=== PATIENT | female | born 1965 | race Caucasian/White ===

== ENCOUNTER 2025-02-06 12:51 | Emergency (ER) | payer MEDICARE, MEDICAID, SELFPAY ==
--- NOTE | 2025-02-06 13:03 | ED_ITS ---
HPI - General Adult General Chief complaint: General Medical Stated complaint: NO section 21 from MV, HTN crisis Time Seen by Provider: 02/06/25 13:02 Source: patient and EMS Mode of arrival: EMS Limitations: no limitations History of Present Illness ED Provider: Regine Rose PA-C HPI narrative: Patient is a 59 year old assigned female at with a history of von willebrand's disease, HTN, bipolar disorder, and hyponatremia presenting to the emergency department today from [facility] for an elevated blood pressure. Patient states that she has no complaints. Elicia Hamlin states that the patient's blood pressures were elevated and they gave her the already prescribed hypertension medications and it began to came down but she needs to be evaluated. Patient denies any dizziness, lightheadedness, abdominal pain, nausea, vomiting, fever, chills, blurry vision, double vision, loss of vision, chest pain, difficulty breathing, shortness of breath, back pain, night sweats, pain with urination, increased urinary frequency, increased urinary urgency, blood in her urine or stool, syncope or a near syncopal episode, recent trauma or falls, bowel incontinence, bladder incontinence, or any other complaints at this time. Patient is on a section 21 from [facility] - so if medically cleared, patient will return to that facility. Upon reviewing the patient's psychiatry assessment from [facility] the patient is acutely manic - tearing down the lyon of her home, attempting to give her car away to strangers, inviting homeless people into her home. Patient's son, Yimi, can be contacted at [phone]. Relieving factors: none Exacerbating factors: none Associated symptoms: denies other symptoms Treatments prior to arrival: other (prescribed anti-hypertensives) Related Data Allergies Allergy/AdvReac Type Severity Reaction Status Date / Time No Known Allergies Allergy Verified 02/06/25 13:10 Review of Systems 2 Constitutional: Constitutional: Reports no additional constitutional complaints, Denies chills, Denies fever(s) and Denies night sweats Eyes: Eyes: Reports no additional eye complaints, Denies blurry vision, Denies change in vision, Denies diplopia, Denies eye discharge, Denies loss of vision and Denies eye pain ENT: Denies dizziness Cardiovascular: Cardiovascular: Reports no additional cardiovascular complaints, Denies chest pain, Denies lightheadedness, Denies Loss of Consciousness and Denies dyspnea Respiratory: Respiratory: Reports no additional respiratory complaints and Denies dyspnea Gastrointestinal: Gastrointestinal: Reports no additional gastrointestinal complaints, Denies abdominal pain, Denies melena, Denies hematochezia, Denies change in bowel habits and Denies change in stool character Genitourinary: Genitourinary: Denies hematuria, Denies urinary frequency, Denies dysuria, Denies urinary incontinence, Denies urinary hesitancy and Denies urinary urgency Musculoskeletal: Musculoskeletal: Reports no additional musculoskeletal complaints, Denies numbness and Denies tingling Neurologic: Denies dizziness, Denies loss of vision, Denies numbness and Denies tingling Psychiatric: Psychiatric: Reports no additional psychiatric complaints Endocrine: Endocrine: Reports no additional endocrine complaints Hematologic/Lymphatic: Hematologic/Lymphatic: Reports no additional hematologic/lymphatic complaints Allergic/Immunologic: Allergic/Immunologic: Reports no additional allergic/immunologic complaints PMFSH Past Medical History Attestation statement: The following information was validated with the patient. Source: old records reviewed and nursing notes reviewed Social History Social History Alcohol intake: former Smoked in Last 30 Days: No Substance Use Type: Marijuana Advance Directives: No Advance Directives Information Provided: Yes Physical Exam ED Vital Signs: Vital Signs - 24 hr 02/06/25 13:04 Temperature 98.1 F Pulse Rate 80 Respiratory Rate 16 Blood Pressure 146/99 H Pulse Oximetry 97 Oxygen Delivery Method Room Air BMI result Body Mass Index 26.3 Const General: cooperative, no acute distress, alert and awake Nutritional Appearance: well nourished Orientation/consciousness: patient oriented x3 HENMT Head: Yes normal to inspection and Yes atraumatic Ears: hearing grossly normal bilaterally and external ears normal General nose exam: Normal external nose present, no nasal discharge noted and no epistaxis Face and sinus: Yes normal facial exam, No abrasion and No laceration Mouth: Normal oral and palatal mucosa present, no drooling and no muffled voice Eyes General: appearance normal, both eyes and all related structures Periorbital: periorbital findings normal Eyelids: Yes eyelids normal Conjunctivae: conjunctivae normal Pupils: Equal, round and reactive pupils present EOM: EOMs intact bilaterally Neck Neck: Yes normal visual inspection, Yes full ROM and Yes no lymphadenopathy Resp Effort & Inspection: normal respiratory effort and able to speak in complete sentences Neuro General: patient oriented x3, moves all extremities and CN's II-XI intact bilaterally Cranial nerves: Yes Equal, round and reactive pupils present Cognition (Neuro): normal cognition Extrem General: Yes normal to inspection, Yes full ROM and Yes capillary refill normal Psych Appearance: grossly normal Medical Decision Making Medical Decision Making [facility] Narrative: Patient is a 59 year old assigned female at with a history of von willebrand's disease, HTN, bipolar disorder, and hyponatremia presenting to the emergency department today from [facility] for an elevated blood pressure. Patient's physical exam was unremarkable. Patient's blood work was unremarkable. Patient's EKG was unremarkable. I explained my physical exam findings as well as all test results to the patient. I answered all questions asked by the patient. Patient was normotensive the entire time she was in the department. I stressed the importance of the patient taking her medication as directed (either prescribed or as the over the counter packaging recommends). I stressed the importance of the patient following up with her primary care provider. I stressed the importance of the patient returning to the emergency department immediately if she were to develop any dizziness, shortness of breath, difficulty breathing, chest pain, blurry vision, loss of vision, nausea, vomiting, abdominal pain, fever, chills, back pain, or any other complaints. Patient verbalized agreement and understanding with this treatment plan and transfer back to [facility]. Differential Diagnosis Differential Diagnoses: The differential diagnosis associated with the presentation includes HTN Medical examination Admission/Observation Consideration of admission/observation: Escalation of care including admission/observation considered Patient would have been admitted to the hospital had her work up had any findings where hospital admission was appropriate and her clinical presentation warranted hospital admission. Lab Data [facility] Lab Attestation statement: I reviewed the patient's lab results. My interpretation of these results are in the [facility] Rationale portion of this note. 02/06/25 13:54 02/06/25 13:54 Labs: Lab Results 02/06/25 02/06/25 Range/Units 13:54 13:55 WBC 6.0 (4.8-10.8) X10*3/uL RBC 4.22 (4.20-5.50) X10*6/uL Hgb 12.1 (12.0-16.0) g/dl Hct 35.5 L (37.0-47.0) % MCV 84.1 (80.0-98.0) fL MCH 28.7 (27.0-33.0) pg MCHC 34.1 (31.0-35.0) g/dl RDW 13.2 (11.0-16.0) % Plt Count 267 (160-400) X10*3/uL MPV 9.5 (9.4-12.3) fL Immature Gran % (Auto) 0.3 (0.0-0.4) % Neut % (Auto) 66.2 (45-73) % Lymph % (Auto) 27.4 (20-40) % [place] % (Auto) 5.5 (2-11) % Eos % (Auto) 0.3 (0-4) % Baso % (Auto) 0.3 (0-2) % Lymph # (Auto) 1.6 (1.2-4.9) X10*3/uL [place] # (Auto) 0.3 (0.1-1.2) X10*3/uL Eos # (Auto) 0.0 (0.0-0.4) X10*3/uL Baso # (Auto) 0.0 (0.0-0.2) X10*3/uL Abs Immat Gran (auto) 0.02 (0.00-0.03) X10*3/uL Absolute Neuts (auto) 4.0 (2.0-8.3) x10*3/uL Absolute Nucleated RBC 0.000 (0.0-0.012) X10*3/uL Nucleated RBC % (auto) 0.0 (0.0-0.2) /100WBC Sodium 134 L (135-145) mmol/L Potassium 3.6 (3.3-5.1) mmol/L Chloride 104 (96-108) mmol/L Carbon Dioxide 23 (22-29) mmol/L Anion Gap 11 L (12-20) BUN 8 L (9-16) mg/dL Creatinine 0.64 (0.5-1.4) mg/dL Estim Creat Clear Calc 90.4 Estimated GFR > 60 Random Glucose 122 H (60-115) mg/dL Calcium 9.3 (8.4-10.2) mg/dL Total Bilirubin 0.3 (0.0-1.0) mg/dL AST 25 (5-31) U/L ALT 29 (0-31) U/L Alkaline Phosphatase 64 (39-117) U/L Total Protein 6.7 (6.5-8.0) g/dL Albumin 4.2 (3.5-5.0) g/dL Urine Color Yellow Urine Appearance Clear Urine pH 6.0 (5.0-9.0) Ur Specific [place] 1.010 (1.005-1.025) Urine Protein Negative (Neg-Trace) mg/dL Urine Glucose (UA) Negative (Negative) mg/dL Urine Ketones Negative (Negative) mg/dL Urine Blood Moderate (2+) H (Negative) Urine Nitrite Negative (Negative) Ur Leukocyte Esterase Large (3+) H (Negative) Urine RBC 3-5 H (0-2) /HPF Urine WBC 11-20 (0-5) /HPF Ur Squamous Epith Cells 3-5 (0-2) /HPF Urine Bacteria Trace (None Seen) Hyaline Casts 0-2 (0-2) /LPF Salicylates < 5.0 L (15-30) mg/dL Urine Opiates Screen Not Detected (Not Detect) Ur Buprenorphine Scrn Not Detected (Not Detect) ng/mL Ur Oxycodone Screen Not Detected (Not Detect) ng/mL Urine Methadone Screen Not Detected (Not Detect) ng/mL Urine Fentanyl Screen Not Detected (Not Detect) Acetaminophen 5 (<30) mcg/mL Ur Barbiturates Screen Not Detected (Not Detect) Ur Phencyclidine Scrn Not Detected (Not Detect) Ur Amphetamines Screen Not Detected (Not Detect) U Benzodiazepines Scrn Not Detected (Not Detect) Urine Cocaine Screen Not Detected (Not Detect) U Marijuana (THC) Screen POSITIVE H (Not Detect) Ethyl Alcohol < 10 mg/dL Independent Interpretation I performed an independent interpretation of an: EKG Interpretation: I independently interpreted this EKG and am in agreement with the below findings: Vent. Rate: 56 BPM Atrial Rate: 56 BPM P-R Int: 168 ms QRS Dur: 92 ms QT Int: 450 ms P-R-T Axes: 66 7 33 degrees QTcB Int: 434 ms Sinus bradycardia Minimal voltage criteria for LVH, may be normal variant ( Obed product ) Borderline ECG No previous ECGs available DD/ 1413 Independent Historian Clinical information obtained from an independent historian. History obtained from or confirmed by: EMS (EMS provided additional history and confirmed the history provided by the patient. ) External Record Review External record reviewed: Inpatient record and Outside ED record (Reviewed [facility] ED records from 02/05/2025) Chronic Conditions Patient?s care impacted by: Hypertension Critical Care Time Critical Care Time Critical Care Time: Yes Total Critical Care Time: 33 Attestation: I spent 33 minutes of Critical Care Time with this patient. This does not include time spent on separately reported billable procedures. Discharge Plan Discharge Clinical Impression: Hypertension, María Patient Disposition: [facility] Transfer Details: Back to [facility] Instructions: Hypertension (ED) Additional Instructions: Follow up with a primary care provider. Return to the emergency department immediately if your symptoms worsen or if you develop any numbness, tingling, dizziness, shortness of breath, difficulty breathing, chest pain, blurry vision, loss of vision, nausea, vomiting, abdominal pain, fever, chills, back pain, or any other complaints. L If you do not have a primary care provider - call any of the below numbers to establish and follow up with a primary care provider. [facility] ([place]) [phone] [place] [address], [address] [facility] ([facility] [place]) [phone] [place] [address], [address] [facility], [address] [facility] ([address] [place]) [phone] [place] [address], [address] [facility], [address] [facility] ([place]) [phone] [place] [address], [address] [facility], [address] [facility] [phone] [address] [facility], [address] Please see the information below about our Patient Portal. If you are not yet enrolled in the [facility] Patient Portal, you will receive an enrollment email invitation following your visit to any [facility] care setting. You may also self-enroll in the Patient Portal by visiting our website: [email or web address] The following information is required to access the Patient Portal: - Your [facility] Medical Record Number - Your personal home email address (must match what is in your electronic medical record, Registration staff can assist with this) - Name - Date of Capabilities of the Patient Portal: - Message some providers - View upcoming appointments - Access your health summary, medical history, and visit history - View current conditions and allergies - View procedure and lab results - View your medications, including guidelines, side effects, and precautions - Complete pre-appointment questionnaires requested by your provider - Ready summary reports of your office visits and procedures To access the Patient Portal Mobile Humberto, follow these directions: - Search Instantisth in the Humberto Store or Jooix Store - Download the Humberto - Search for [facility] - Enter your login/password Print Language: French
[2025-02-06 13:04] VITALS: BP 117/81; BP 146/99; PULSE 80; RESP 16; TEMP 36.7; O2SAT 97; BMI 26.3
--- NOTE | 2025-02-06 13:05 | ECG_ITS ---
Test Reason : Medical clearence Blood Pressure : */* mmHG Vent. Rate : 56 BPM Atrial Rate : 56 BPM P-R Int : 168 ms QRS Dur : 92 ms QT Int : 450 ms P-R-T Axes : 66 7 33 degrees QTcB Int : 434 ms Sinus bradycardia Minimal voltage criteria for LVH, may be normal variant ( [place] product ) Borderline ECG No previous ECGs available Referred By: Regine Rose Electronically Signed By: Delta Kilpatrick
--- NOTE | 2025-02-06 13:24 | PC.NURSE ---
Patient is a 59 yo female who presents from [facility] with a ? hypertensive crisis via EMS. Normotensive for EMS. Patient denies any complaints. PMH: Htn, von Willebrand's disease and bipolar. Patient was sent to [facility] for exhibiting erratic/dangerous and aggressive behavior. Section 21 noted. Patient appears to be sl manic but redirectable. States that they discharged her to this facility. Clothing and belongings removed. Changed into psych safe clothing and placed on constant observation. Lungs clear bilat. Respirations even and non-labored. Abdomen flat, soft, non-tender with positive bowel sounds. Positive pedal pulses with no edema.
[2025-02-06 14:01] LABS: MANUAL DIFF FLAG NO
[2025-02-06 14:04] LABS: Hematocrit 35.5 % (37.0-47.0); Hemoglobin 12.1 g/dl (12.0-16.0); Imm Gran Abs Auto 0.02 X10*3/uL (0.00-0.03); Imm Gran Pct Auto 0.3 % (0.0-0.4); Lymphocytes Absolute Auto 1.6 X10*3/uL (1.2-4.9); Mean Corpuscular HGB Conc 34.1 g/dl (31.0-35.0); Mean Corpuscular Hemoglobin 28.7 pg (27.0-33.0); Mean Corpuscular Volume 84.1 fL (80.0-98.0); NRBC Abs Auto 0.000 X10*3/uL (0.0-0.012); NRBC Pct Auto 0.0 /100WBC (0.0-0.2); Platelet Count 267 X10*3/uL (160-400); Red Blood Count 4.22 X10*6/uL (4.20-5.50); White Blood Count 6.0 X10*3/uL (4.8-10.8)
[2025-02-06 14:10] LABS: Appearance Urine Clear; Glucose Urine UA Negative (Negative); PH 6.0 (5.0-9.0); Specific Gravity - Urine 1.010 (1.005-1.025); UMIC TRIGGER UA YES
[2025-02-06 14:15] LABS: Cannabinoid Screen Urine POSITIVE (Not Detect)
[2025-02-06 14:20] LABS: Acetaminophen LAB 5 mcg/mL (<30); Salicylate < 5.0 mg/dL (15-30)
--- OUTSIDE RECORDS SUMMARY | 2025-02-06 14:20 | XMS_ITS | Encounter Summary ---
Author Organization [facility] Address [address] [place] [address] Phone Care Team Providers Care Traffic Worker Name Role Phone Lui Thompson MD Primary Care Provider + Isabel Nichols MD Primary Care Provider [phone] Lamine Ponce MD Primary Care Provider [phone] Aníbal Thompson MD Unavailable Encounter Details Date Type Department Care Team (Late Contact Info) Description 08/20/2015 Telephone [facility] Pain Management [address] [facility] [facility] [address] [place] [id number] Rhiannon Garibay, RN [address] [place] [phone] [email or web address] Social History Tobacco Use Types Packs/Day Years Used Date Smoking Tobacco: Former Comments:Smoking History Pac ks/day: <=0.5 Alcohol Use Standard Drinks/Week Comments Yes 1 (1 standard drink = 0.6 oz pur e alcohol) Comments Unknown Sex and Gender Information Value Date Recorded Sex Assigned at Not on file Legal Sex Female 4:59 PM EST Gender Identity Not on file Sexual Orientation Not on file documented as of this encounter Plan of Treatment Upcoming Encounters Date Type Department Care Team (Late Contact Info) Description 02/08/2025 9:00 AM EDT [facility] [address] [place] [address] Salvador Randhawa, PhD, MPH [address] [place] [address] [email or web address] 03/13/2025 10:00 AM EDT [facility] [address] [place] [address] Salvador Randhawa, PhD, MPH [address] [place] [address] [email or web address] documented as of this encounter Visit Diagnoses Not on filedocumented in this encounter Care Teams Traffic Worker Relationship Specialty Start Date End Date Lui Thompson MD [address] [place] [address] [place] [address] PCP - General 01/15/14 11/17/15 Isabel Nichols MD [address] [place] [id number] [email or web address] PCP - General 11/18/15 7 Lamine Ponce MD [address] [place] [address] [email or web address] PCP - General Internal Medicine 02/23/17 Aníbal Thompson MD [address] [place] [address] [email or web address] 06/29/22 documented as of this encounter Additional Source Comments The information contained in this document represents components of the legal health record. It is not the complete legal health record.[facility]
--- OUTSIDE RECORDS SUMMARY | 2025-02-06 14:20 | XMS_ITS | Data Portability ---
Author Organization [facility] Address [address] [place] [address] Care Team Providers Care Parquetry Layer Name Role Phone CHARLEEN NIETO Referring Provider Assessment Encounter Date Assessment Date Assessment LastModified by Organization Details LastModified Time 03/25/2017 03/25/2017 Custom Device: Is a custom device needed for this patient? NO Orthotic Goals: Choose all that apply Provide Support Reduce Pain Limit Motion Positioning Improve Stability for RLE ankle during continued healing Improve Gait Improve Posture Promote Healing Other (please specify): [email or web address] Not available 03/29/2017 21:04:57 04/01/2017 04/01/2017 Custom Device: Is a custom device needed for this patient? NO The patient will be seen on an as needed basis. Orthosis: is in stock and delivered today. Device delivered: Prefab, OTS Orthotic Goals: Choose all that apply Provide Support Reduce Pain Limit Motion Positioning Improve Stability Promote Healing Other (please specify): Not available 04/01/2017 12:12:35 Plan of Treatment Reminders Order Date Submit Date Provider Last Modified By Organization Details Last Modified Time Details Appointments None record ed. Lab None record ed. Referral None record ed. Procedures None record ed. Surgeries None record ed. Imaging None record ed. Medication Orders None record ed. Patient TargetsNo targets recorded. Patient Instructions Encounter Date Encounter Id Patient Instructions Last Modified By Organization Details Last Modified Time 03/25/2017 [id number] Please use gualberto garcia waking hours with lace up shoes/sneakers, and/or as MD has instructed. [email or web address] Not available 03/29/2017 21:05:14 Device provided has good fit and function. Patient agrees with my assessment. Patient does understand wear and care of device. Patient does understand how to don and doff the device. Patient received written instructions. Patient was provided with my business card and agrees to call if any problems. [email or web address] Not available 03/29/2017 21:02:35 04/01/2017 [id number] Device provided has good fit and function. Patient agrees with my assessment. Patient does understand wear and care of device. Patient does understand how to don and doff the device. Patient received written instructions. Patient was provided with my business card and agrees to call if any problems. Not available 04/01/2017 12:07:54 Reason for Referral None Reported. Procedures Surgical History Date Name Laterality Status Provider Name and Address Organization Details Recorded Time 7 BI Procedures completed DAMIEN COKER CPO [address], [place], [address], [facility] 04/01/2017 12:12:12 7 BI Procedures completed BRI Grier [address], [place], [phone], [email or web address] 03/29/2017 21:04:25 Imaging Results None recorded. Procedure Notes None recorded. Medical Equipment None Reported. Vitals None Recorded Social History None recorded. Functional Status None recorded. Mental Status None recorded. Family History Nothing Reported. Medical History No medical history recorded. Gynecological HistoryNo gynecological history recorded. Obstetrics History GPAL:G 0 P 0 0 0 0 Past Encounters Encounter ID Performer Location Encounter Start Date Encounter Closed Date Diagnosis/Indication Diagnosis SNOMED-CT Code Diagnosis ICD10 Code Diagnosis Note [id number] Judith Corrigan [place] [facility] [address] [place] [address] 03/25/2017 11:20:50 04/01/2017 15:38:24 Sprain of ankle [id number] S93.401D [id number] RYAN Fernandez, sawdust drier [facility] [address] [place] [address] 04/01/2017 11:27:55 04/06/2017 21:14:40 Dehiscence of tendon repair [id number] T81.32XA Z96.651 Health Concerns Section Related Observation LastModified by Organization Detai ls LastModified Time None Recorded Concern Status LastModified by Organization Details LastModified Time None Recorded Advance Directives Directive None Recorded Payers Insurance Date Sequence Insurance Name Policy Number Policy French Covered Member ID French Member ID Guarantor Name 04/14/2017 1 [place] [facility] Hawa May [id number] Hawa May 04/01/2017 NORIDIAN - SPECIALITY CLAIMS (MEDICARE [facility]) Hawa May [id number] Hawa May Notes Date Note Type Note Provider Name and Address Organization Details Recorded Time 03/25/2017 text/html BI HPIReported b y Patientpatient RTO stating she sprained her right ankle. Patient has mild swelling present today . Judith Corrigan, [place] [address], [place], [address], [facility] 03/29/2017 21:06:01 04/01/2017 text/html BI HPIReported b y PatientPatient Details:For patient accompanied, patient reportspatient not accompanied. For patient is, patient reportsout patient.EvaluationFor pain?, patient reportslevel 10/25. For weakness?, patient reportsweakness reported. For instability?, patient reportsinstability reported. For material allergies, patient reportsno. For numbness?, patient reportsnone reported. For edema?, patient reportsno edema reported. For skin problems, patient reportsnone reported. For assistive devices?, patient reportscrutches. For current injury, (r tka c/b wound dehiscence). Braulio toribio [place] [facility] 04/14/2017 12:33:22 OBGyn Episode No OBEpisode recorded.
--- OUTSIDE RECORDS SUMMARY | 2025-02-06 14:20 | XMS_ITS | Clinical Summary ---
Author Organization [facility] Address [address] [place] [address] Phone Care Team Providers Care Clinical Coordinator Name Role Phone Physician, No Pcp Primary Care Provider Unavaila ble Allergies No known active allergies Encounters Date Type Department Care Team Description 02/02/2025 8:57 PM EDT - 02/02/2025 9:30 PM EDT Emergency [facility] Emergency [address] [place] [id number] Jhonny Guo MD Agitation (Primary Dx) Discharge Disposition: Home or Self Care from Last 3 Months Social History Tobacco Use Types Packs/Day Years Used Date Smoking Tobacco: Never Assessed Comments Unknown Sex and Gender Information Value Date Recorded Sex Assigned at Not on file Legal Sex Female 8:30 PM EDT Gender Identity Not on file Sexual Orientation Not on file Last Filed Vital Signs Vital Sign Reading Time Taken Comments Blood Pressure 92/65 02/02/2025 9:04 PM EDT Pulse 86 02/02/2025 9:04 PM EDT Temperature 36.4 C (97.5 F) 02/02/2025 9:04 PM EDT Respiratory Rate 18 02/02/2025 9:04 PM EDT Oxygen Saturation 96% 02/02/2025 9:17 PM EDT Inhaled Oxygen Concentration - - Weight - - Height - - Body Mass Index - - Plan of Treatment Health Maintenance Due Date Last Done Comments Hepatitis B Vaccines (1 of 3 - 19+ 3-dose series) 1984 Pneumococcal Vaccine: 50+ Years (1 of 1 - PCV) 2015 Zoster Vaccines (1 of 2) 2015 Cervical Cancer Screening: Pap Smear 08/04/2015 08/04/2012 COVID-19 Vaccine ( season) 2024 01/20/2021, 12/22/2020 Depression Screening 07/18/2024 Colorectal Cancer Screening: Colonoscopy 02/02/2025 05/21/2013 Medicare Annual Wellness Visit 02/02/2025 Social Influencers of Health Screening 02/02/2025 Influenza Vaccine (#1) 2025 , 04/25/2020, 05/08/2019, Additional history exists Breast Cancer Screening 08/19/2025 08/19/19, 08/19/2023, 06/15/2021, Additional history exists Hypertension/CHF/CAD Annual BMP Blood Test 01/01/2026 01/01/2025, 12/31/2024, 12/30/2024, Additional history exists Cholesterol Screening (Lipid Panel) 12/05/2029 12/05/2024, 12/05/2024, 09/11/2014 DTaP,Tdap,and Td Vaccines (4 - Td or Tdap) 09/20/2031 09/19/2021, 07/28/2015, 08/01/2012 RSV Immunization Adult Patients (1 - 1-dose 75+ series) 2040 Hepatitis C Screening Completed 09/10/2013 HIV Screening Completed 01/10/2014 HIB Vaccines Aged Out No longer eligi ble based on patient's age to complete this topic HPV Vaccines Aged Out No longer eligi ble based on patient's age to complete this topic Hepatitis A Vaccines Aged Out No long er eligible based on patient's age to complete this topic IPV Vaccines Aged Out No longer eligi ble based on patient's age to complete this topic MMR Vaccines Aged Out No longer eligi ble based on patient's age to complete this topic Meningococcal ACWY Vaccine Aged Out N o longer eligible based on patient's age to complete this topic Meningococcal B Vaccine Aged Out No l onger eligible based on patient's age to complete this topic RSV Immunization Patients Under 20 months Aged Out No longer eligible based on patient's age to complete this topic Varicella Vaccines Aged Out No longer eligible based on patient's age to complete this topic Additional Health Concerns Infection Onset Date Last Indicated Respiratory Rule-Out 02/02/2025 02/02/2025 COVID-19 Rule-Out 02/02/2025 02/02/2025 Insurance MEDICARE MEDICAID - [place] Care Teams Clinical Coordinator Relationship Specialty Start Date End Date Physician, No Pcp PCP - General 02/02/25
--- OUTSIDE RECORDS SUMMARY | 2025-02-06 14:21 | XMS_ITS | Clinical Summary ---
Author Organization [facility] Facility Address [address] [place] [id number] Care Team Providers Care Seal Skinner Name Role Phone Unavailable Primary Care Provider Unavailabl e Social History Tobacco Use Types Packs/Day Years Used Date Smoking Tobacco: Every Day Comments Unknown Sex and Gender Information Value Date Recorded Sex Assigned at Not on file Legal Sex Female 8:14 PM EST Gender Identity Not on file Sexual Orientation Not on file Plan of Treatment Health Maintenance Due Date Last Done Comments Breast Cancer Screening 1965 Hepatitis B Vaccine (1 of 3 - 19+ 3-dose series) 03/14 Pneumococcal Vaccine: 50+ Years (1 of 2 - PCV) 984 Colorectal Cancer Screening: Annual FOBT 2014 Colorectal Cancer Screening: Colonoscopy 2014 Colorectal Cancer Screening: Sigmoidoscopy 2014 Influenza Vaccine (#1) 2025 Insurance Medicare [facility]
[2025-02-06 14:22] LABS: Alanine Aminotransferase 29 U/L (0-31); Albumin Level 4.2 g/dL (3.5-5.0); Alkaline Phosphatase 64 U/L (39-117); Anion Gap 11 (12-20); Aspartate Amino Transferase 25 U/L (5-31); Blood Urea Nitrogen 8 mg/dL (9-16); Calcium 9.3 mg/dL (8.4-10.2); Carbon Dioxide 23 mmol/L (22-29); Chloride 104 mmol/L (96-108); Creatinine Clr Calc Pharmacy 90.4; Estimated Glomerular Filt Rate > 60; Potassium 3.6 mmol/L (3.3-5.1); Sodium 134 mmol/L (135-145); Total Protein 6.7 g/dL (6.5-8.0)
[2025-02-06 16:17] VITALS: BP 146/99; PULSE 80; RESP 16; TEMP 36.7; O2SAT 97
== END 2025-02-06 16:18 ==
PROVIDERS: Physician Assistant Medical; Emergency Provider Emergency Medicine
DX: F31.9 Bipolar disorder, unspecified (principal); I10 Essential (primary) hypertension; E87.1 Hypo-osmolality and hyponatremia; R00.1 Bradycardia, unspecified; Z51.81 Encounter for therapeutic drug level monitoring; Z79.899 Other long term (current) drug therapy
CPT/HCPCS: 36415; 80053; 80143; 80179; 80307; 81001; 81003; 85025; 93005; 99285

== ENCOUNTER → 2025-02-06 13:05 | Outpatient (BNV) | payer MEDICARE, MEDICAID, SELFPAY | PROVIDERS: Emergency Provider Emergency Medicine; Visit Provider Internal Medicine Cardiovascular Disease | DX: R00.1 Bradycardia, unspecified (principal) | CPT/HCPCS: 93010 ==

== ENCOUNTER 2025-02-23 12:35 | Emergency (ER) | payer MEDICARE, MEDICAID, SELFPAY ==
[2025-02-23 12:56] VITALS: BP 150/72; PULSE 73; RESP 18; TEMP 36.3; O2SAT 97; BMI 21.6
[2025-02-23 14:21] LABS: MANUAL DIFF FLAG NO
[2025-02-23 14:22] LABS: Hematocrit 36.6 % (37.0-47.0); Hemoglobin 12.7 g/dl (12.0-16.0); Imm Gran Abs Auto 0.02 X10*3/uL (0.00-0.03); Imm Gran Pct Auto 0.4 % (0.0-0.4); Lymphocytes Absolute Auto 1.5 X10*3/uL (1.2-4.9); Mean Corpuscular HGB Conc 34.7 g/dl (31.0-35.0); Mean Corpuscular Hemoglobin 29.2 pg (27.0-33.0); Mean Corpuscular Volume 84.1 fL (80.0-98.0); NRBC Abs Auto 0.000 X10*3/uL (0.0-0.012); NRBC Pct Auto 0.0 /100WBC (0.0-0.2); Platelet Count 251 X10*3/uL (160-400); Red Blood Count 4.35 X10*6/uL (4.20-5.50); White Blood Count 5.6 X10*3/uL (4.8-10.8)
[2025-02-23 14:29] LABS: INTERNATIONAL NORM RATIO 0.9 (0.9-1.1); Prothrombin Time 10.3 SEC (10.9-12.4)
[2025-02-23 14:32] LABS: Partial Thromboplastin Time 30.6 SEC (26.7-34.1)
[2025-02-23 14:36] LABS: Alanine Aminotransferase 20 U/L (0-31); Albumin Level 4.1 g/dL (3.5-5.0); Alkaline Phosphatase 71 U/L (39-117); Anion Gap 11 (12-20); Aspartate Amino Transferase 23 U/L (5-31); Blood Urea Nitrogen 14 mg/dL (9-16); Calcium 9.1 mg/dL (8.4-10.2); Carbon Dioxide 25 mmol/L (22-29); Chloride 102 mmol/L (96-108); Creatinine Clr Calc Pharmacy 86.4; Estimated Glomerular Filt Rate > 60; Potassium 4.2 mmol/L (3.3-5.1); Sodium 134 mmol/L (135-145); Total Protein 6.7 g/dL (6.5-8.0)
--- NOTE | 2025-02-23 15:18 | ED_ITS ---
HPI - General Adult General Chief complaint: General Medical Stated complaint: possible internal bleeding Time Seen by Provider: 02/23/25 12:47 Source: patient and EMS Mode of arrival: EMS History of Present Illness ED Provider: Richard CAVAZOS narrative: 59-year-old female who is brought in under a section 21 from [facility], has known underlying von Willebrand's disease, does have relevant primary care doctors and specialists in place, has complaints that she may be undergoing a von Willebrand's crisis and would need DDAVP, otherwise denies any shortness of breath/chest pain/palpitations, denies any GI or symptoms. Denies any SI/HI. She reports that she was also evaluated at [facility] last week. She has instructed me to not pay any attention to the documentation by [facility] as they are lying. Related Data Allergies Allergy/AdvReac Type Severity Reaction Status Date / Time heparin Allergy Unknown Verified 02/23/25 13:01 NSAIDS (Non-Steroidal Allergy Unknown Verified 02/23/25 13:01 Anti-Inflamma oxycodone Allergy Unknown Verified 02/23/25 13:01 warfarin Allergy Unknown Verified 02/23/25 13:01 Review of Systems 2 Review of Systems: Pertinent positives and negatives as stated in HPI PMF Past Medical History Source: nursing notes reviewed Social History Social History Alcohol intake: former Substance Use Type: Marijuana Advance Directives: No Advance Directives Information Provided: Yes Physical Exam ED Exam Exam: VITAL SIGNS: Reviewed. GENERAL: Well developed, well nourished, in no acute distress. HEAD: Normocephalic/atraumatic EYES: PERRLA, EOMI EARS: Ext canals without abnormality NOSE: Nares patent bilateral OROPHARYNX: no oral lesions noted, posterior pharynx clear NECK: Supple, no adenopathy LUNGS: Normal breath sounds. No adventitious sounds or accessory muscle use. SpO2<97> CARDIOVASCULAR: Regular rate and rhythm without noted murmurs, no JVD or lower extremity edema. ABDOMEN: Soft, non-tender, non-distended with bowel sounds. MUSCULOSKELETAL: No tenderness, deformities, or effusions noted on gross inspection. EXTREMITIES: No cyanosis, clubbing or edema, mild areas of ecchymosis SKIN: Inspection of the skin reveals no rashes NEUROLOGIC: Alert and oriented x 3. Strength and sensation to light touch were grossly intact x 4. Vital Signs: Vital Signs - 24 hr 02/23/25 12:56 Temperature 97.3 F Pulse Rate 73 Respiratory Rate 18 Blood Pressure 150/72 H Pulse Oximetry 97 Oxygen Delivery Method Room Air BMI result Body Mass Index 21.6 Medical Decision Making Medical Decision Making [facility] Narrative: 59-year-old female with clinical and historical findings, DD DX: Will evaluate for any evidence to otherwise indicate that patient is experiencing any sort of hematologic dyscrasia crisis. There is no clinical evidence, patient has no neurologic findings, she is otherwise well appearing/nontoxic and hemodynamically stable. I reviewed interpreted all investigations and there is no leukocytosis, anemia, or thrombocytopenia. Coagulation studies are within clinical parameters, there is no evidence of DADA/electrolyte or liver enzyme derangements. Patient otherwise remains well appearing and nontoxic and will discharge her back to [facility] with the recommendations that she should follow-up with all of her appropriate specialist for her underlying hematologic condition and that she should be taking all of her prescribed medications for all medical conditions. Differential Diagnosis Differential Diagnoses: The differential diagnosis associated with the presentation includes See above Admission/Observation Consideration of admission/observation: Escalation of care including admission/observation considered Patient does not meet inpatient level of care Lab Data [facility] Lab Attestation statement: I reviewed the patient's lab results. See above 02/23/25 14:17 02/23/25 14:17 Labs: Lab Results 02/23/25 Range/Units 14:17 WBC 5.6 (4.8-10.8) X10*3/uL RBC 4.35 (4.20-5.50) X10*6/uL Hgb 12.7 (12.0-16.0) g/dl Hct 36.6 L (37.0-47.0) % MCV 84.1 (80.0-98.0) fL MCH 29.2 (27.0-33.0) pg MCHC 34.7 (31.0-35.0) g/dl RDW 12.5 (11.0-16.0) % Plt Count 251 (160-400) X10*3/uL MPV 9.7 (9.4-12.3) fL Immature Gran % (Auto) 0.4 (0.0-0.4) % Neut % (Auto) 64.0 (45-73) % Lymph % (Auto) 27.0 (20-40) % [place] % (Auto) 7.3 (2-11) % Eos % (Auto) 0.9 (0-4) % Baso % (Auto) 0.4 (0-2) % Lymph # (Auto) 1.5 (1.2-4.9) X10*3/uL [place] # (Auto) 0.4 (0.1-1.2) X10*3/uL Eos # (Auto) 0.1 (0.0-0.4) X10*3/uL Baso # (Auto) 0.0 (0.0-0.2) X10*3/uL Abs Immat Gran (auto) 0.02 (0.00-0.03) X10*3/uL Absolute Neuts (auto) 3.6 (2.0-8.3) x10*3/uL Absolute Nucleated RBC 0.000 (0.0-0.012) X10*3/uL Nucleated RBC % (auto) 0.0 (0.0-0.2) /100WBC PT 10.3 L (10.9-12.4) SEC INR 0.9 (0.9-1.1) APTT 30.6 (26.7-34.1) SEC Sodium 134 L (135-145) mmol/L Potassium 4.2 (3.3-5.1) mmol/L Chloride 102 (96-108) mmol/L Carbon Dioxide 25 (22-29) mmol/L Anion Gap 11 L (12-20) BUN 14 (9-16) mg/dL Creatinine 0.63 (0.5-1.4) mg/dL Estim Creat Clear Calc 86.4 Estimated GFR > 60 Random Glucose 99 (60-115) mg/dL Calcium 9.1 (8.4-10.2) mg/dL Total Bilirubin 0.2 (0.0-1.0) mg/dL AST 23 (5-31) U/L ALT 20 (0-31) U/L Alkaline Phosphatase 71 (39-117) U/L Total Protein 6.7 (6.5-8.0) g/dL Albumin 4.1 (3.5-5.0) g/dL Discharge Plan Discharge Clinical Impression: Von Willebrand disease Patient Disposition: Xfer Inpatient Rehab Fac Instructions: Congenital von Willebrand Disease (ED) Additional Instructions: Resume all prescribed medication, specifically resume all medications that are prescribed for your underlying medical conditions to include von Willebrand's. Recommend scheduling and keeping all appointments for Hematology, primary care. Do not hesitate to return to the emergency room for any acute worsening of your symptoms. Referrals: [place] [Primary Care Provider, Primary Care] Print Language: Slovenian
--- NOTE | 2025-02-23 17:29 | PC.NURSE ---
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
[2025-02-23 17:42] VITALS: BP 152/80; PULSE 62; RESP 18; TEMP 36; O2SAT 95
== END 2025-02-23 20:16 ==
PROVIDERS: Emergency Provider Student in an Organized Health Care Education/Training Program; PCP Dentist General Practice
DX: D68.00 Von Willebrand disease, unspecified (principal); F12.90 Cannabis use, unspecified, uncomplicated; Z79.01 Long term (current) use of anticoagulants
CPT/HCPCS: 36415; 80053; 85025; 85610; 85730; 99283